=== PATIENT | female | born 1990 | race Caucasian/White ===

== ENCOUNTER 2018-08-01 17:30 | Emergency (ER) | payer OTHER ==
[2018-08-01 17:41] VITALS: BP 124/71
[2018-08-01] MEDS ORDERED: CHERRY SYRUP 10 ML UDC PO ONE (17:48)
[2018-08-01] MEDS ORDERED: DEXAMETHASONE 10 MG/ML VIAL PO STA (17:48)
--- NOTE | 2018-08-01 17:53 | ED Physician Documentation ---
PD HPI HEENT - Stated complaint Stated Complaint: SINUS PRESSURE - Chief complaint Chief Complaint: Heent - History obtained from History obtained from: Patient - History of Present Illness Timing - onset: How many days ago (3) Timing - duration: Days (3) Timing - details: Gradual onset, Still present Location: Sinuses, Nose Associated symptoms: Fever, Congestion, Rhinorrhea, Cough Similar symptoms before: Diagnosis (sinusitis) Recently seen: Clinic - Additional information Additional information: 28-year-old female who is 13 weeks has developed nasal congestion cough and fever. She is coughing up green phlegm she is blowing a lot of stuff out of her nose and she is not checking the color of that. She is allergic to penicillin. Review of Systems Constitutional: reports: Fever, Myalgias, Fatigue Eyes: denies: Decreased vision Ears: denies: Ear pain Nose: reports: Rhinorrhea / runny nose, Congestion Throat: denies: Sore throat Cardiac: denies: Chest pain / pressure, Palpitations Respiratory: reports: Cough. denies: Dyspnea GI: denies: Vomiting Skin: denies: Rash Musculoskeletal: denies: Neck pain, Back pain, Extremity pain Neurologic: denies: Generalized weakness, Focal weakness, Numbness PD PAST MEDICAL HISTORY - Present Medications Home Medications: Ambulatory Orders Medication Instructions Recorded Confirmed Azithromycin [Zithromax] 250 mg PO DAILY #4 tablet 08/01/18 - Allergies Allergies/Adverse Reactions: Allergies Allergy/AdvReac Type Severity Reaction Status Date / Time Penicillins Allergy Anaphylaxis Verified 08/01/18 17:41 - Social History Does the pt smoke?: No Smoking Status: Never smoker PD ED PE NORMAL - Vitals Vital signs reviewed: Yes (normal ) - General General: Alert and oriented X 3, No acute distress, Well developed/nourished - HEENT HEENT: Atraumatic, PERRL, EOMI, Ears normal, Other (There is inflamation of both nares and under the nose. There is no frontal or maxillary sinus point tenderness ) - Neck Neck: Supple, no meningeal sign, No bony TTP - Cardiac Cardiac: RRR, No murmur - Respiratory Respiratory: No respiratory distress, Clear bilaterally - Abdomen Abdomen: Soft, Non tender - Derm Derm: Normal color, Warm and dry, No rash - Extremities Extremities: No deformity, No edema - Neuro Neuro: Alert and oriented X 3, nurse healthcare manager 2-12 intact, No motor deficit, No sensory deficit, Normal speech Eye Opening: Spontaneous Motor: Obeys Commands Verbal: Oriented GCS Score: 15 - Psych Psych: Normal mood, Normal affect Results - Vitals Vitals: Vital Signs - 24 hr 08/01/18 17:37 Temperature 36.5 C Heart Rate 90 Respiratory 16 Rate Blood Pressure 124/71 O2 Saturation 96 Oxygen O2 Source Room air PD MEDICAL DECISION MAKING - ED course Complexity details: considered differential, d/w patient ED course: 28-year-old female with acute sinusitis is administered X methadone [address] her on some azithromycin as she is allergic to penicillin. Departure - Departure Disposition: Home, Self Care Clinical Impression: Sinusitis, acute Qualifiers: Sinusitis location: ethmoidal Recurrence: non-recurrent Qualified Code(s): J01.20 - Acute ethmoidal sinusitis, unspecified Instructions: ED Sinusitis Abx Tx Follow-Up: [facility] [Provider Group] Prescriptions: Azithromycin [Zithromax] 250 mg PO DAILY #4 tablet
[2018-08-01] MEDS ORDERED: AZITHROMYCIN 250 MG TABLET PO STA (17:58)
== END 2018-08-01 18:28 | disposition home or self-care (01) ==
LOC: ED 17:30
DX: O99.511 Diseases of the respiratory system complicating pregnancy, first trimester (principal); J01.20 Acute ethmoidal sinusitis, unspecified; Z88.0 Allergy status to penicillin; Z3A.13 13 weeks gestation of pregnancy
CPT/HCPCS: 99283; A9270